=== PATIENT | male | born 1955 | race Caucasian/White ===

== ENCOUNTER 2017-04-18 20:05 | Emergency (ER) | payer OTHER ==
[2017-04-18] MEDS ORDERED: DILTIAZEM 24HR240 M2 PO (20:22)
[2017-04-18] MEDS ORDERED: ZOCOR10 M1 PO (20:23)
[2017-04-18] MEDS ORDERED: WELLBUTRIN XL150 M1 PO (20:23)
[2017-04-18] MEDS ORDERED: AMBIEN10 M1 PO (20:24)
[2017-04-18] MEDS ORDERED: FISH OIL 1,001000 M2 PO (20:24)
[2017-04-18] MEDS ORDERED: XANAX1 M1 PO (20:24)
[2017-04-18] MEDS ORDERED: MEN'S ONE DAIL1 EACH PO (20:25)
[2017-04-18] MEDS ORDERED: VITAMIN D31000 UNI3 PO (20:25)
[2017-04-18] MEDS ORDERED: CLARITIN10 M6 PO (20:26)
[2017-04-18] MEDS ORDERED: TRAZODONE HCL50 M1 PO (20:26)
== END 2017-04-18 21:07 ==
LOC: EDMED 20:05
DX: B35.6 Tinea cruris (principal); I10 Essential (primary) hypertension; F32.9 Major depressive disorder, single episode, unspecified; F41.9 Anxiety disorder, unspecified; Z79.899 Other long term (current) drug therapy